=== PATIENT | male | born 1930 | race Caucasian/White ===

== ENCOUNTER → 2017-01-25 | Outpatient (CLI) | payer MEDICARE ==
[~2017-01-25] VITALS: Wt 79.8 kg
[~2017-01-25] MED LIST: AMARYL1 MG PO; BETAPACE 120MG120 MG PO; COSOPT 2%-0.5%10 ML OU; CRESTOR5 MG PO; FERROUS SULFATE65 MG PO; GLUCOPHAGE500 MG/TAB PO; HCTZ12.5TAB PO; OCUVITE1 TA1 PO; OMEGA-31 SGL PO; PERCOCET 325 MG1 TA2 PO; PROAIR HFA0.09 MG/AC IH; SINGULAIR 110 MG/TAB PO; STRIVERDI2.5 MCG/Ac IH; THEO-24400 MG PO; VITAMIN C500 MG PO; VITAMIN D1000 IU PO; XARELTO20 MG PO; ZESTRIL 10MG10 MG PO
[2017-01-25 10:07] VITALS: BP 124/71; PULSE 63
[2017-01-25 10:25] VITALS: BP 124/71; PULSE 63
[2017-01-25 10:35] VITALS: BP 129/76; PULSE 63
[2017-01-25 10:40] VITALS: BP 136/74; PULSE 62
== END ==
LOC: COL.RAD 09:36
DX: C34.32 Malignant neoplasm of lower lobe, left bronchus or lung (principal); Z53.09 Procedure and treatment not carried out because of other contraindication; J44.9 Chronic obstructive pulmonary disease, unspecified; I11.9 Hypertensive heart disease without heart failure; E10.9 Type 1 diabetes mellitus without complications; Z87.891 Personal history of nicotine dependence; Z79.899 Other long term (current) drug therapy; Z79.84 Long term (current) use of oral hypoglycemic drugs; Z99.81 Dependence on supplemental oxygen; Z79.01 Long term (current) use of anticoagulants